=== PATIENT | male | born 1960 | race Caucasian/White ===

== ENCOUNTER 2017-02-26 12:50 | Emergency (ER) | payer OTHER ==
[2017-02-26 13:01] VITALS: BP 138/96
--- NOTE | 2017-02-26 13:43 | RAD ---
HISTORY: Right fifth finger trauma COMPARISONS: None VIEWS: 3, Frontal, lateral, and oblique views of the fifth digit of the right hand FINDINGS: BONE DENSITY: Normal. BONES: There is no displaced fracture. JOINTS: There is no arthropathy. ALIGNMENT: There is posterior medial (ulnar) dislocation of the middle phalanx with respect to the proximal phalanx at the PIP joint SOFT TISSUES: Unremarkable. OTHER FINDINGS: None. IMPRESSION: FIFTH PIP DISLOCATION
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
--- NOTE | 2017-02-26 15:11 | RAD ---
HISTORY: Post reduction COMPARISONS: February 26, 2017 at 1:33 PM VIEWS: 5, Frontal, lateral, and oblique views of the fifth digit of the right hand FINDINGS: BONE DENSITY: Normal. BONES: There is no displaced fracture. JOINTS: There is no arthropathy. ALIGNMENT: On 4 the submitted 5 images has been interval reduction of the fifth PIP dislocation SOFT TISSUES: Unremarkable. OTHER FINDINGS: None. IMPRESSION: INTERVAL REDUCTION OF FIFTH PIP DISLOCATION
== END 2017-02-26 15:35 | disposition home or self-care (01) ==
LOC: ED 12:50
DX: S63.276A Dislocation of unspecified interphalangeal joint of right little finger, initial encounter (principal); I10 Essential (primary) hypertension; V19.9XXA Pedal cyclist (driver) (passenger) injured in unspecified traffic accident, initial encounter; Y93.55 Activity, bike riding; Y92.9 Unspecified place or not applicable
CPT/HCPCS: 26770; 73140; 99282